=== PATIENT | male | born 1960 | race Caucasian/White ===

== ENCOUNTER 2019-03-19 18:52 | Emergency (ER) | payer OTHER ==
[2019-03-19 19:00] VITALS: BP 143/72
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
== END 2019-03-19 20:10 | disposition home or self-care (01) ==
LOC: ER 18:52
DX: S51.012A Laceration without foreign body of left elbow, initial encounter (principal); M25.512 Pain in left shoulder; M25.552 Pain in left hip; V43.52XA Car driver injured in collision with other type car in traffic accident, initial encounter; E78.00 Pure hypercholesterolemia, unspecified; I10 Essential (primary) hypertension
CPT/HCPCS: 99283